=== PATIENT | female | born 2000 | race Two or more races ===

== ENCOUNTER 2024-07-08 13:35 | Observation (INO) | payer MEDICAID, SELFPAY ==
[2024-07-08] VITALS (7 sets, daily range): BP systolic 115–135; BP diastolic 63–78; PULSE 67–89; RESP 16–98; TEMP 36.9; BMI 27.1
[2024-07-08 14:42] LABS: Collection Type, Urine Clean Catch
[2024-07-08 15:11] LABS: Bacteria,Urine Rare; Bilirubin,Urine Negative (Negative); Blood,Urine Negative (Negative); Clarity,Urine Clear (Clear/Hazy); Color,Urine Yellow (Lt Yel-Yel); Glucose, Urine Negative (Negative); Ketones,Urine 4+ (Negative); Leukocyte Esterase,Urine Negative (Negative); Nitrite,Urine Negative (Negative); Protein,Urine 1+ (Neg - Trace); RBC,Urine 4 /hpf (0-3); Specific Gravity,Urine 1.025 (1.001-1.035); Squamous Epithelial Cell,Urine 10 /hpf (0-5); Urobilinogen,Urine Negative mg/dL (0.0-1.0); WBC,Urine 2 /hpf (0-5)
[2024-07-08] MEDS: TERBUTALINE SULF INJ 1 MG/ML VIAL 0.25 MG SC (15:35)
== END 2024-07-08 17:06 | disposition home or self-care (01) ==
PROVIDERS: Admitting Provider Obstetrics & Gynecology; Visit Provider Obstetrics & Gynecology
DX: O26.893 Other specified pregnancy related conditions, third trimester (principal); Z3A.36 36 weeks gestation of pregnancy; R10.9 Unspecified abdominal pain
CPT/HCPCS: 59025; 59899; 81001; 96372; J3105

== ENCOUNTER 2024-07-15 18:57 | Observation (INO) | payer MEDICAID, SELFPAY ==
[2024-07-15 19:09] VITALS: BP 121/68; PULSE 74; RESP 15; TEMP 36.6
[2024-07-15 19:16] VITALS: BP 121/68; PULSE 74; RESP 100; RESP 15; TEMP 36.6
[2024-07-15 19:22] VITALS: TEMP 36.6; BMI 28.7
== END 2024-07-15 19:38 | disposition home or self-care (01) ==
PROVIDERS: Admitting Provider Obstetrics & Gynecology; Visit Provider Obstetrics & Gynecology
DX: O26.853 Spotting complicating pregnancy, third trimester (principal); O26.893 Other specified pregnancy related conditions, third trimester; R10.2 Pelvic and perineal pain; Z3A.37 37 weeks gestation of pregnancy
CPT/HCPCS: 59025; G0378

== ENCOUNTER 2024-07-17 00:19 | Observation (INO) | payer MEDICAID, SELFPAY ==
[2024-07-17] VITALS (12 sets, daily range): BP systolic 123–131; BP diastolic 78–81; PULSE 66–87; RESP 16–99; TEMP 36.5; O2SAT 94–99; BMI 28.2
== END 2024-07-17 01:24 | disposition home or self-care (01) ==
PROVIDERS: Admitting Provider Obstetrics & Gynecology; Visit Provider Obstetrics & Gynecology
DX: O47.1 False labor at or after 37 completed weeks of gestation (principal); Z3A.37 37 weeks gestation of pregnancy
CPT/HCPCS: 59025; 59899

== ENCOUNTER 2024-07-17 06:00 | Inpatient (IN) | payer MEDICAID, SELFPAY ==
[2024-07-17] VITALS (16 sets, daily range): BP systolic 118–146; BP diastolic 62–89; PULSE 73–115; RESP 16–100; TEMP 36.4–36.8; O2SAT 96–98; BMI 28.7
[2024-07-17 06:47] LABS: Basophils # (Auto) 0.1 Thou/mm3 (0.0-0.2); Basophils % (Auto) 0 % (0-2.5); Eosinophils % (Auto) 0 % (0-10); Hematocrit 32.8 % (36.0-46.0); Hemoglobin 11.3 g/dL (12.0-16.0); Immature Granulocytes % (Auto) 1 % (0-0); Immature Granulocytes Auto 0.13 Thou/mm3 (0.00-0.00); Lymphocytes # (Auto) 1.1 Thou/mm3 (1.0-4.8); Lymphocytes % (Auto) 5 % (10-50); Mean Corpuscular HGB Conc 34.5 g/dl (31.0-37.0); Mean Corpuscular Hemoglobin 29.7 pg (25.0-35.0); Mean Corpuscular Volume 86 fL (80-100); Monocytes # (Auto) 0.5 Thou/mm3 (0.0-0.8); Monocytes % (Auto) 2 % (0-12); Neutrophils # (Auto) 20.9 Thou/mm3 (1.8-7.7); Neutrophils % (Auto) 92 % (37-80); Nucleated Red Blood Cell % 0 /100 WBC (0); Platelet Count 332 Thou/mm3 (140-440); RDW Standard Deviation 39.8 fL (36.4-46.3); Red Blood Count 3.81 Miln/mm3 (4.00-5.20); White Blood Count 22.6 Thou/mm3 (3.6-11.0)
[2024-07-17] MEDS: LIDOCAINE HCL 1% 20 ML VIAL INFL (07:20)
[2024-07-17] MEDS: BENZO/LANO/ALOE (Dermoplast) 60 GM CAN 1 SPRAY TOP (07:20)
[2024-07-17 07:21] LABS: Syphilis Nonreactive (Nonreactive)
[2024-07-17] MEDS: OXYTOCIN in NS 20 units 20 UNIT/1,000 ML BAG 125 UNIT IV (07:21)
--- NOTE | 2024-07-17 07:41 | PD.LDHP ---
Documentation for date of: 07/17/24 OB Labor/Induct. HPI History of Present Illness Chief complaint: active labor : 1 Para: 0 History of Present Adequate Care: Yes Labs Narrative: when office opens Review of Systems Review of Systems Systems Reviewed: All systems reviewed, normal except as documented Past Medical History Past Medical History Comments PMH COMMENT: denies medical or surgical issues Meds Home Medications and Allergies Home Medications ?Medication ?Instructions ?Recorded ?Confirmed ?Type ondansetron HCl 4 mg tablet 4 mg PO Q4H PRN nausea and vomiting 07/17/24 07/17/24 History vits no.130-ferrous fum 1 tab PO DAILY 07/17/24 07/17/24 History 27 mg iron-folic acid 800 mcg tablet ( Vitamin) Allergies Allergy/AdvReac Type Severity Reaction Status Date / Time guaifenesin Allergy Intermediate RASH Verified 07/17/24 07:14 OB Exam Physical Exam Vital signs: Temp Pulse Resp BP 98.1 F 103 H 16 146/66 H 07/17/24 06:10 07/17/24 07:30 07/17/24 06:05 07/17/24 07:30 Constitutional Constitutional: mild distress Comments: active labor Routine HEENT Exam Head: Present normocephalic Routine Cardiovascular Exam Cardiovascular: Present RRR Routine Abdominal Exam Comments: trm appearing fundus Detailed Labor and Delivery Exam Dilation (cm): 8 Effacement (%): 100 Cervix position: posterior station: +1 Consistency: soft Presentation: Vertex position: Right Occiput Anterior Membranes: ruptured Amniotic fluid: clear Baseline heart rate: 120 monitor decelerations: Variable long term acute care registered nurse variability: Average (6-10) Routine Extremities Exam Comments: normal Routine Back/Spine/Pelvis Exam Comments: normolinear OB Results Labs 07/17/24 06:20 Labs: waiting till private office to open for all labs
--- NOTE | 2024-07-17 07:47 | OBDSUM_ITS ---
Data (Lewis) Data Hx Section: No Delivery Data (Lewis) Labor Data Stimulated/Augmented: No Induction: No Delivery Data EDC: 08/03/24 Delivery Time: 07:00 Gestational age (weeks): 37 Delivery Method Delivery: Vaginal Delivery Type: Spontaneous Presentation: Vertex Position: RYLEY Placenta Placenta Delivery: Spontaneous Placenta Cultures Obtained: No Placenta Sent for Examination: Yes Episiotomy Episiotomy: None Perineal repair Sutures used for repair: other Umbilical Cord Umbilical Vessels: 3 Nuchal Cord: Not Applicable Body Cord: Not Applicable Data (Lewis) [place] Data order: 1 Gender: Male
[2024-07-17] MEDS: IBUPROFEN TAB 400 MG TABLET 800 MG PO (09:38)
[2024-07-17 10:18] LABS: Amphetamine/Metham Scrn,Ur OB Negative (Negative); Benzoylecgonine Screen, Ur OB Negative (Negative); Opiate Screen,Urine OB Negative (Negative); THC Screen,Urine OB Positive (Negative)
[2024-07-17 10:20] LABS: THC U Confirm* See Sep Rpt
[2024-07-17] MEDS: ACETAMINOPHEN 325 MG TABLET 650 MG PO (11:55)
[2024-07-17 12:33] LABS: Basophils # (Auto) 0.1 Thou/mm3 (0.0-0.2); Basophils % (Auto) 0 % (0-2.5); Eosinophils % (Auto) 0 % (0-10); Hematocrit 30.4 % (36.0-46.0); Hemoglobin 10.2 g/dL (12.0-16.0); Immature Granulocytes % (Auto) 1 % (0-0); Immature Granulocytes Auto 0.18 Thou/mm3 (0.00-0.00); Lymphocytes # (Auto) 0.9 Thou/mm3 (1.0-4.8); Lymphocytes % (Auto) 4 % (10-50); Mean Corpuscular HGB Conc 33.6 g/dl (31.0-37.0); Mean Corpuscular Hemoglobin 29.6 pg (25.0-35.0); Mean Corpuscular Volume 88 fL (80-100); Monocytes # (Auto) 1.2 Thou/mm3 (0.0-0.8); Monocytes % (Auto) 5 % (0-12); Neutrophils # (Auto) 22.3 Thou/mm3 (1.8-7.7); Neutrophils % (Auto) 91 % (37-80); Nucleated Red Blood Cell % 0 /100 WBC (0); Platelet Count 286 Thou/mm3 (140-440); RDW Standard Deviation 40.7 fL (36.4-46.3); Red Blood Count 3.45 Miln/mm3 (4.00-5.20); White Blood Count 24.6 Thou/mm3 (3.6-11.0)
[2024-07-18 04:02] VITALS: BP 132/81; PULSE 84; RESP 16; TEMP 36.7; O2SAT 96
[2024-07-18 08:30] VITALS: BP 121/85; PULSE 83; RESP 17; TEMP 36.6; O2SAT 98
--- NOTE | 2024-07-18 09:31 | PD.LDPPPRG ---
Subjective Subjective Interval history: PPD 1 doing well reADY FOR d/c WITH GOOD HOME SUPPORT Exam Vital Signs Temp Pulse Resp BP Pulse Ox O2 Del Method 98.1 F 84 16 132/81 H 96 Room Air 07/18/24 04:02 07/18/24 04:02 07/18/24 04:02 07/18/24 04:02 07/18/24 04:02 07/18/24 04:02 Narrative Exam NO COMPLAINTS Routine HEENT Exam Head: Present normocephalic Eye: Present EOMI, PERRL and normal accommodation Routine Respiratory Exam Comments: CLEAR Routine Cardiovascular Exam Comments: RRR Routine Abdominal Exam Comments: U/1 firm Routine Neurological Exam Comments: +2 sym biceps and quad Objective Labs 07/17/24 11:53 Labs: Laboratory Results - last 24 hr 07/17/24 07/17/24 07/17/24 06:20 08:34 11:53 WBC 24.6 H RBC 3.45 L Hgb 10.2 L Hct 30.4 L MCV 88 MCH 29.6 MCHC 33.6 RDW Std Deviation 40.7 Plt Count 286 D Neut % (Auto) 91 H Lymph % (Auto) 4 L [place] % (Auto) 5 Eos % (Auto) 0 Baso % (Auto) 0 Neut # (Auto) 22.3 H Lymph # (Auto) 0.9 L [place] # (Auto) 1.2 H Eos # (Auto) 0.0 Baso # (Auto) 0.1 Immature Gran # (Auto) 0.18 H Absolute Nucleated RBC 0.00 Immature Gran % 1 H Nucleated RBC % 0 Urine Opiates Screen Negative U Amphetamin/Meth Scrn Negative U Cocaine Metab Screen Negative U Marijuana (THC) Screen Positive A Rho(D) IG Studies Ready Antibody Identification Anti-D from RhoGam Assessment & Plan Assessment Comment Assessment comment: PPD ng well Time Spent With Patient Time: Total time spent is greater than 50% in coordination of care (as documented) at patient's floor/unit and/or counseling patient:
--- NOTE | 2024-07-18 10:24 | PC.SS ---
MORALE OFFICER submitted verbal report with S staff, Alex Coe. Basis of report, patient and toxicology report positive for THC. MORALE OFFICER informed by S staff immediate response will not be generated. CWS will follow up with patient upon discharge. MORALE OFFICER updated bedside nurse. Written report submitted electronically to S screener.
--- NOTE | 2024-07-18 12:30 | PC.SS ---
RAILCAR MECHANIC conducted bedside contact with the patient to address nursing referral indicating patient was positive for THC during .? RAILCAR MECHANIC introduced self, role and basis of referral.? Present with patient were FOB (Casey Gutierrez) and patient?s mother (Carol Peralta).? Patient gave permission to discuss referral in presence of visitors.? RAILCAR MECHANIC informed patient that both and patient?s toxicology reports were positive for THC.? Patient confirmed use of THC 3 days prior to infant?s .? Per the patient use of THC to address discomfort and nausea.? Patient also relayed that level of anxiety increasing resulting in THC use.? Patient stated that she ingested THC edibles.? Patient has edibles secured away.? Per patient, plans on ceasing use of THC in part due to .? Patient confirmed presence of anxiety.? Patient is not aligned with mental health services.? Patient states that no impairment with daily functioning.? Patient remains gainfully employed.? Patient has not accessed mental health services.? Due to toxicology report results, patient was informed that at [facility] report would be generated.? [place], Keith Gutierrez; is the patient?s first child.? Patient resides at home with FOB, Casey Gutierrez.? Patient is aligned with WIC and SNAP.? Patient is not aligned with TANF.? Patient denies history of alcohol/drug abuse.? Patient denies episodes of domestic violence.? OB services conducted with Caro Waggoner.? Patient reports consistency with OB appointments.? Patient has access to appropriate supplies and equipment; to include a car seat.? FOB will provide transportation upon discharge.? Patient describes possessing support system consisting of FOB?s parents and extended family.? RAILCAR MECHANIC provided the patient with community resources to include [facility], Warm Line, Mental Health, Alcohol/Drug resources.? No further intervention required at this time, social media strategist will be available to address any further concerns.? RAILCAR MECHANIC updated bedside nurse.? Bedside nurse to submit high risk referral.? RAILCAR MECHANIC to submit written and verbal report to S.?
== END 2024-07-18 12:20 | disposition home or self-care (01) | DRG 560 ==
LOC: S4SX 07:08 → S4NX 09:50
PROVIDERS: Admitting Provider Obstetrics & Gynecology; Visit Provider Obstetrics & Gynecology
DX: O76 Abnormality in fetal heart rate and rhythm complicating labor and delivery (principal); Z3A.37 37 weeks gestation of pregnancy; Z37.0 Single live birth
CPT/HCPCS: 36415; 59025; 59409; 80307; 85025; 86780; 86850; 86870; 86900; 86901; J2590; J2790; J3490; A9270